=== PATIENT | female | born 1985 | race Caucasian/White ===

== ENCOUNTER 2017-10-17 06:10 | Inpatient (IN) ==
[2017-10-17] MEDS ORDERED: TERBUTALINE 1 MG/1 ML VIAL SUBCUT PRN (06:27)
[2017-10-17] MEDS ORDERED: BUTORPHANOL 2 MG/ML VIAL IV PRN (06:27)
[2017-10-17] MEDS ORDERED: ONDANSETRON 4 MG/2 ML VIAL IV PRN ×2 (06:27→22:56)
[2017-10-17] MEDS ORDERED: OXYTOCIN/LR 20 UNIT/1,000 ML BAG IV SCH (06:30)
[2017-10-17 07:14] LABS: Basophils % 0.3 % (0.0-0.8); Eosinophils # 0.1 10*3/uL (0.0-0.87); Eosinophils % 0.9 % (0.00-10.9); Hemoglobin 12.6 GM/DL (12.0-16.0); Immature Granulocytes % 0.6 %; Immature Granulocytes Absolute 0.04 #; Lymphocytes # 1.4 10*3/uL (1.4-4.0); Lymphocytes % 21.3 % (21.3-54.2); Mean Corpuscular HGB Conc 33.2 GM/DL (32-36); Mean Corpuscular Hemoglobin 28 PG (27-34); Mean Corpuscular Volume 85.8 FL (87-102); Mean Platelet Volume 11.1 FL (9.6-12.0); Monocytes # 0.5 10*3/uL (0.11-0.8); Monocytes % 8.1 % (1.7-12.7); Neutrophils # 4.4 10*3/uL (1.4-7.4); Neutrophils % 68.8 % (38.7-73.9); Platelet Count 171 T/CUMM (130-400); Red Blood Count 4.43 MC/CUMM (3.8-5.5); Red Cell Distribution Width 14.9 % (9.3-17.3); White Blood Count 6.4 T/CUMM (4-12)
[2017-10-17] MEDS: LACTATED RINGERS 1,000 ML IV SCH ×2 (07:19→14:44)
[2017-10-17 07:44] LABS: Albumin 3.1 G/DL (3.4-5.0); Bilirubin,Total 0.6 MG/DL (0.2-1.0); Calcium 8.8 MG/DL (8.5-10.1); Osmolality,Calculated 274.5 MOS/KG (273-304); Potassium 3.6 MMOL/L (3.5-5.1); Total Protein 6.6 G/DL (6.4-8.3)
[2017-10-17] MEDS ORDERED: FAMOTIDINE 20 MG/2 ML VIAL IV ONE (13:53)
[2017-10-17] MEDS ORDERED: LACTATED RINGERS 1,000 ML IV ONE (13:53)
[2017-10-17] MEDS ORDERED: ePHEDrine 50 MG/ML AMP IV PRN (13:53)
[2017-10-17] MEDS ORDERED: CITRIC ACID/SODIUM CITRATE 30 ML UDCUP PO ONE (13:53)
[2017-10-17] MEDS ORDERED: diphenhydrAMINE 50 MG/1 ML VIAL IV PRN ×2 (13:54)
[2017-10-17] MEDS ORDERED: PROMETHAZINE 25 MG/1 ML VIAL IM ONE (13:54)
[2017-10-17] MEDS ORDERED: hydrOXYzine HCL 25 MG/1 ML VIAL IM PRN (13:54)
[2017-10-17] MEDS ORDERED: fentaNYL 2 MCG/ROPIV 0.2% EPID 150 ML EPIDURAL SCH (14:00)
[2017-10-17 15:30] LABS: Apearance,Urine CLEAR (Clear); Bacteria,Urine Occasional /HPF (Few); Bilirubin,Urine Negative (Negative); Blood, Urine Negative (Negative); Glucose,Urine (UA) Negative (Negative); Ketones,Urine 80 mg/dL (Negative); Mucus,Urine Occasional /LPF (Occasional); Nitrite,Urine Negative (Negative); Protein,Urine 30 MG/DL; RBC,Urine 1 /HPF (0-4); Urine Color Yellow (Yellow); Urine Specific Gravity 1.021 (1.001-1.035); Urine Urobilinogen < 2.0 EU/DL (0.2-1.0); WBC,Urine 1 /HPF (0-6)
[2017-10-17] MEDS ORDERED: miSOPROStol 200 MCG TABLET ONE (19:12)
[2017-10-17] MEDS ORDERED: METHYLERGONOVINE 0.2 MG/1 ML AMP ONE (19:12)
[2017-10-17] MEDS ORDERED: LIDOCAINE 1% 50 ML VIAL ONE (19:12)
[2017-10-17] MEDS ORDERED: miSOPROStol 200 MCG TABLET RECTAL ONE (22:20)
[2017-10-17] MEDS ORDERED: WITCH HAZEL PADS 100/JAR TOP PRN (22:56)
[2017-10-17] MEDS ORDERED: OXYTOCIN/LR 20 UNIT/1,000 ML BAG IV ONE (22:56)
[2017-10-17] MEDS ORDERED: LANOLIN 50% CREAM 0.3 OZ TUBE TOP PRN (22:56)
[2017-10-17] MEDS ORDERED: oxyCODONE/ACETAMINOPHEN 5-325 MG TABLET PO PRN (22:56)
[2017-10-17] MEDS ORDERED: ACETAMINOPHEN 325 MG TABLET PO PRN (22:56)
[2017-10-17] MEDS ORDERED: RHO(D) IMMUNE GLOBULIN 300 MCG SYRINGE IM ONE (22:56)
[2017-10-17] MEDS ORDERED: HYDROCORTISONE 2.5% RECTAL CREAM 30 GM TUBE TOP PRN (22:56)
[2017-10-17] MEDS ORDERED: BISACODYL 10 MG SUPP RECTAL PRN (22:56)
[2017-10-17] MEDS ORDERED: DIPH/TET/ACEL PERT BOOSTER VACCINE 0.5 ML VIAL IM ONE (22:56)
[2017-10-17] MEDS ORDERED: BENZOCAINE 20%/MENTHOL 0.5% SPRAY 56 GM CAN TOP PRN (22:56)
[2017-10-17] MEDS ORDERED: MEASLES/MUMPS/RUBELLA VACCINE 0.5 ML VIAL SUBCUT ONE (22:56)
[2017-10-18] MEDS: IBUPROFEN 800 MG TABLET PO PRN ×3 (01:46→21:40)
[2017-10-18 06:02] LABS: Basophils % 0.2 % (0.0-0.8); Eosinophils % 0.1 % (0.00-10.9); Hematocrit 28.4 VOL% (35.7-47.0); Immature Granulocytes % 0.9 %; Immature Granulocytes Absolute 0.16 #; Lymphocytes # 1.5 10*3/uL (1.4-4.0); Lymphocytes % 8.8 % (21.3-54.2); Mean Corpuscular HGB Conc 33.8 GM/DL (32-36); Mean Corpuscular Hemoglobin 29 PG (27-34); Mean Corpuscular Volume 85.5 FL (87-102); Mean Platelet Volume 11.4 FL (9.6-12.0); Monocytes # 0.9 10*3/uL (0.11-0.8); Monocytes % 5.3 % (1.7-12.7); Neutrophils # 14.4 10*3/uL (1.4-7.4); Neutrophils % 84.7 % (38.7-73.9); Platelet Count 139 T/CUMM (130-400); Red Cell Distribution Width 15.6 % (9.3-17.3)
[2017-10-18 06:10] LABS: Hemoglobin 9.6 GM/DL (12.0-16.0); Red Blood Count 3.32 MC/CUMM (3.8-5.5)
[2017-10-18] MEDS ORDERED: INFLUENZA VIRUS VACCINE 0.5 ML SYRINGE IM ONE (08:00)
[2017-10-18] MEDS: DOCUSATE SODIUM 100 MG CAPSULE PO SCH ×2 (08:20→21:39)
[2017-10-18] MEDS: oxyCODONE/ACETAMINOPHEN 5-325 MG TABLET PO PRN ×2 (08:25→21:40)
[2017-10-19 07:35] VITALS: BP 107/71
[2017-10-19] MEDS ORDERED: INFLUENZA VIRUS VACCINE 0.5 ML SYRINGE IM ONE (08:59)
== END 2017-10-19 12:45 | disposition home or self-care (01) | DRG 775 ==
LOC: N.LDOUT 06:10 → N.LD 06:14 → N.OB 10-18 02:00
PROVIDERS: ADMIT Obstetrics & Gynecology; ATTEND Obstetrics & Gynecology